=== PATIENT | female | born 1975 | race Hispanic/Latino ===

== ENCOUNTER 2023-01-06 14:16 | Emergency (ER) | payer OTHER ==
[~2023-01-06] VITALS: Ht 160 cm; Wt 60.3 kg
[~2023-01-06 14:16] MED LIST: CHOLESTYRAMINE L4 GM PO; No Home Medications; TRAZODONE HCL50 MG PO; [UNRECOGNIZED DRUG - CODE] PO
[2023-01-06] MEDS ORDERED: LACTATED RINGER'S 1,000 ML INJ ONE (15:30)
[2023-01-06 16:38] VITALS: BP 111/84; PULSE 74; RESP 18; TEMP 98.2; O2SAT 100
[2023-01-06 17:25] LABS: BASOPHILS # (AUTO) 0.1 (0.0-0.1); BASOPHILS % 0.9 % (0.0-1.0); EOSINOPHILS # (AUTO) 0.1 (0.0-0.4); HEMOGLOBIN 12.7 g/dL (12.0-16.0); LYMPHOCYTES # (AUTO) 1.8 (1.0-3.2); LYMPHOCYTES % 26.1 % (18.0-39.1); MEAN CORPUSCULAR HEMOGLOBIN 31.1 pg (28-32); MEAN CORPUSCULAR HGB CONC 34.3 g/dL (31-35); MEAN CORPUSCULAR VOLUME 90.7 fL (81-99); MONOCYTES # (AUTO) 0.6 (0.2-0.8); MONOCYTES % 8.7 % (4.4-11.3); NEUTROPHILS # (AUTO) 4.4 (2.1-6.9); PLATELET COUNT 299 x10e3/uL (140-360); RED BLOOD COUNT 4.08 x10e6/uL (3.6-5.1); RED CELL DISTRIBUTION WIDTH 13.3 % (11.7-14.4)
[2023-01-06 17:45] LABS: ALBUMIN 4.3 g/dL (3.5-5.0); ALBUMIN/GLOBULIN RATIO 1.3 (0.8-2.0); ANION GAP 13.7 mmol/L (8-16); CALCIUM 9.3 mg/dL (8.4-10.2); CREATININE, SERUM 0.69 mg/dL (0.57-1.11); MAGNESIUM 2.2 MG/DL (1.3-2.1); POTASSIUM 3.7 mmol/L (3.5-5.1)
[2023-01-06] MEDS ORDERED: DICYCLOMINE HCL10 MG PO (18:26)
== END 2023-01-06 18:36 | disposition home or self-care (01) ==
LOC: ER 14:40
DX: R19.7 Diarrhea, unspecified (principal); R11.0 Nausea; E03.9 Hypothyroidism, unspecified
CPT/HCPCS: 36415; 80053; 83735; 85025; 99284; J7121

== ENCOUNTER → 2023-01-09 | Outpatient (REF) | payer OTHER ==
[~2023-01-09] MED LIST changes: +DICYCLOMINE HCL10 MG PO
== END ==
LOC: US 08:59
PROVIDERS: ATTEND Nurse Practitioner
DX: R10.11 Right upper quadrant pain (principal); K52.9 Noninfective gastroenteritis and colitis, unspecified
CPT/HCPCS: 76700; 76856